=== PATIENT | male | born 1945 | race Caucasian/White ===

== ENCOUNTER 2020-07-08 11:35 | Inpatient (IN) | payer MEDICARE, BC ==
[~2020-07-08] VITALS: Ht 182.9 cm; Wt 77.5 kg
--- NOTE | ~2020-07-08 | DS ---
PATIENT:ELIZABETH PENA :41 MEDICAL RECORD: [id number] DISCHARGE SUMMARY ADMISSION DATE: 07/08/20 DISCHARGE DATE: 07/22/20 IDENTIFYING DATA: The patient is 74 years old and he was admitted to the hospital on a voluntary basis. CHIEF COMPLAINT: Aggression. HISTORY OF PRESENT ILLNESS: The patient lives at home with his . He has been aggressive with her and other family members. He was diagnosed with dementia some years ago, but the family did not want him to take medications for this condition. He is now aggressive and they cannot handle him. He has some delusions but is clearly severely impaired. HOSPITAL COURSE: The patient was admitted to the hospital and evaluated from both a medical, psychological, and social standpoint. He was treated with both mood-stabilizing and memory-enhancing medications. He showed dramatic improvement in his behaviors and subsequently was referred to a situation where he could get [id number] supervision and care. DISCHARGE DIAGNOSES: AXIS I: Major neurocognitive disorder of the Alzheimer's type with behavioral disturbances. AXIS II: None. AXIS III: Hypertension. AXIS IV: Moderate stressors. AXIS V: Global assessment of functioning is 35. PLAN: At the time of discharge, the patient had no evidence of direct or acute dangerousness to himself or others. He was tolerating his medicines well. Followup is to be with his primary care physician. NTS:[id number] Voice Confirmation ID: [id number] DOCUMENT ID: [id number] LONA DANG MD CC: [id number] DICTATION DATE: 07/23/20 1646 ELECTRIC WHEELCHAIR REPAIRER: 07/24/20 0052 DIS IN 07/22/20 [address] [address] [id number] [place] [address]
[2020-07-08 12:38] LABS: ANION GAP 5.3 mmol/L (8-16); CARBON DIOXIDE 32.1 mmol/L (21.0-32.0); CREATININE - SERUM 1.3 mg/dL (0.6-1.3); POTASSIUM - SERUM 4.4 mmol/L (3.5-5.1)
[2020-07-08 12:39] LABS: BASOPHILS 0.3 % (0-2); EOSINOPHILS 5.5 % (0-7); HEMATOCRIT 44.3 % (42.0-54.0); HEMOGLOBIN 14.8 g/dL (13.5-17.5); IMMATURE GRANULOCYTES 0.2 % (0-5); LYMPHOCYTES 24.8 % (15-50); MCH 31.4 pg (26.0-34.0); MCHC 33.4 g/dL (31.0-37.0); MCV 93.9 fL (80.0-100.0); MONOCYTES 5.9 % (2-11); NEUTROPHILS 63.3 % (40-80); PLATELET COUNT 165 10x3/uL (130-400); RBC 4.72 10x6/uL (4.20-6.10); WBC 5.8 10x3/uL (4.8-10.8)
[2020-07-08 12:53] LABS: ALBUMIN 3.7 g/dL (3.4-5.0); BILIRUBIN - TOTAL 0.48 mg/dL (0.2-1.3); MAGNESIUM - SERUM 2.3 mg/dL (1.8-2.4); PROTEIN - SERUM 6.6 g/dL (6.4-8.2); THYROID STIMULATING HORMONE 1.17 uIU/mL (0.36-3.74)
[2020-07-08 13:44] LABS: BILIRUBIN NEGATIVE (NEGATIVE); KETONE NEGATIVE (NEGATIVE); NITRITE NEGATIVE (NEGATIVE); UROBILINOGEN NORMAL mg/dL (< 2)
[2020-07-08 14:49] LABS: CHOL - HDL RATIO 3.3 ratio (2.3-4.9); LDL-HDL RATIO 1.8 ratio (1.5-3.5); THYROID STIMULATING HORMONE 1.21 uIU/mL (0.36-3.74)
[2020-07-08] MEDS ORDERED: LISINOPRIL-HCT1 EAC7 PO (15:53)
[2020-07-08] MEDS ORDERED: TRAZODONE HCL100 MG PO (15:55)
[2020-07-08 16:06] VITALS: BP 139/98; BMI 24.5
[2020-07-08 16:09] LABS: UDS - AMPHET NEGATIVE QUAL (NEGATIVE); UDS - BARB NEGATIVE QUAL (NEGATIVE); UDS - BENZO NEGATIVE QUAL (NEGATIVE); UDS - COCAINE NEGATIVE QUAL (NEGATIVE); UDS - OPIATE NEGATIVE QUAL (NEGATIVE); UDS - PCP NEGATIVE QUAL (NEGATIVE); UDS - THC NEGATIVE QUAL (NEGATIVE)
--- NOTE | 2020-07-08 16:34 | NUR ---
NEW ADMIT TO DR DANG ON [facility] FROM [facility]. PT ADMITTED FOR INCREASED AGGRESSION. PT IS FULL CODE. JEFFRY MENDOZA CONTACT # . PCP- GATO KOVACS [facility]. PHARMACY [facility] [address]. CODE # 3998.
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
--- NOTE | 2020-07-08 20:10 | NUR ---
B.) PT IS ALERT AND ORIENTED TO SELF ONLY. HE HAS POOR INSIGHT INTO HIS SITUATION. HE IS VERY [place]. HE IS OBSERVED PACING AND GRABBING AT ITEMS AT THE NURSES STATION. I.) REDIRECTED OFTEN. R.) DIFFICULT TO REDIRECT. P.) WILL CONTINUE TO MONITOR.
--- NOTE | 2020-07-08 21:30 | NUR ---
PT IS RESTING CALMLY IN BED WITH EYES CLOSED. NO DISTRESS NOTED. WILL CONTINUE TO MONITOR.
[2020-07-08 22:42] VITALS: BP 135/85
--- NOTE | 2020-07-09 07:05 | NUR ---
The patient is confused, he has poor insight into his situation. He is not able to follow simple direction, he is PUI and he keeps trying to come out of his room. He is grabbing stuff and he getting more and more anxious and frustrated. Ativan 0.5 mg and Haldol 2 mg IM in left hip. Monitor behavior and mood.
[2020-07-09 07:18] LABS: RAPID PLASMA REAGIN Non Reactive (Non Reactive)
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
--- NOTE | 2020-07-09 12:39 | NUR ---
The patient's daughter Liliane called and wanted to know how her Dad is doing and how the COVID test turned out. Let her know we do not have the results back yet. She said "Well, can you find out when the results will be back?" Explained to her that the lab will provide a final result when it is back. She asked me to find out and I said I will call the lab. Lab called me back and said the test was sent out yesterday and the results will be back in 48 hours so probably sometime tomorrow. Let the patient's daughter know and she said "Oh my he is just going to be going crazy in that room." I explained that right now he is just going through things and touching things. She did not like that he is in the room all alone being more confused and anxious. After a long pause she said "Thank you for calling me back."
[2020-07-09 13:54] VITALS: Ht 182.9 cm; Wt 77.5 kg
--- NOTE | 2020-07-09 17:42 | NUR ---
NURSE ASSISTED FEED PT. HE DID EAT BETTER. PT WAS TALKING TO UNSEEN PEOPLE IN THE ROOM. PT WAS NOT ABLE TO FULLY FOCUS ON MEALS DUE TO TALKING TO THE UNSEEN PERSON.
--- NOTE | 2020-07-09 20:35 | NUR ---
B.) PT IS ALERT AND ORIENTED TO SELF ONLY. HE HAS POOR INSIGHT INTO HIS SITUATION. HE IS VERY CONFUSED AND FINDS IT DIFFICULT TO FOLLOW SIMPLE COMMANDS. HE IS ABLE TO AMBULATE AND TENDS TO BE FOUND WANDERING INTO OTHER PATIENTS ROOMS. HE IS STILL TO REMAIN IN HIS ROOM UNDER DROPLET PRECAUTIONS PENDING COVID RESULTS. I.) PROVIDED PM MEDICATIONS PRESCRIBED. REDIRECT OFTEN. R.) COMPLIANT WITH ALL MEDICATIONS. DIFFICULT TO REDIRECT. P.) WILL CONTINUE TO MONITOR.
[2020-07-09 21:07] VITALS: BP 129/68
--- NOTE | 2020-07-10 03:24 | NUR ---
PT IS RESTLESS AND IS OBSERVED ATTEMPTING TO ENTER OTHER PATIENTS ROOM. WHEN REDIRECT HE STATES "IS THIS WHERE THE MEDICAL RECORDS COORDINATOR ALL PUT THEIR THINGS." HE IS VERY CONFUSED AND DIFFICULT TO REDIRECT. WILL CONTINUE TO MONITOR.
--- NOTE | 2020-07-10 07:39 | NUR ---
The patient continues to be in his room, awaiting COVID test results at this time it is pending. He is confused, he knows his name, but he does not know where he is or the date. He has poor insight into his situation. He does not direct well as he does not comprehend what anyone is saying to him. He looks at staff and says ok, but then he does the opposite. He is having hallucinations as he is talking to unseen others and he is pointing at things. Provide prescribed meds, monitor for medication compliance. Continue POC.
[2020-07-10 08:00] VITALS: BP 139/88
--- NOTE | 2020-07-10 08:30 | NUR ---
PT GRANDDAUGHTER CALLED TO CHECK ON PT. PASSCODE GIVEN. SHE WANTED TO KNOW HOW BAD HIS NIGHT WAS AND IF HE GOT ANY MEDICATIONS. NURSE STATED HE HAD A GOOD NIGHT. YES HE WAS RESTLESS, WANDERING, BUT NOT AGGRESSIVE AND ABLE TO REDIRECT. WE DID NOT ADMINISTER ANY PRN MEDICATIONS." SHE WAS PLEASED TO HEAR THAT HE DID NOT REQUIRE ANY PRN MEDICATIONS. SHE INQURIED IF HE HAD BEEN STARTED ON ANY MEMORY MEDICATIONS. NURSE DID REPORT HE WAS STARTED ON MEMORY MEDS. SHE VERBALIZIED UNDERSTANDING AND THANKED NURSE. SHE REQUESTED WE NOTIFY HER OR HER MOTHER WHEN PT WAS REMOVED FROM COVID PRECAUTIONS. NURSE AGREED TO NOTIFY FAMILY.
--- NOTE | 2020-07-10 16:13 | NUR ---
Nano, the patient's grand daughter called to check on him and let her know he is in the population, the COVID test is negative. Let her know her grandfather is very confused and he thinks all of the women are his and he tries to sit by them. She asked about medication to help him sleep, let her know he has trazodone ordered now, she was pleased to hear it.
--- NOTE | 2020-07-10 20:08 | NUR ---
PATIENT GIVEN A PRN HALDOL/ATIVAN FOR EXTREME AGITATION AND PSYCHOSIS, HE WAS WANTING TO STAY IN THE DINING ROOM TO SIT WITH "THE MONEY" AND THAT HE WASN'T GOING TO STEAL ANY OF THE MONEY. COMPLIANT WITH MEDS. HE IS EXTREMELY CONFUSED, HE HAS SOILED HIMSELF AND IS REFUSING INCONTINENT CARE AT THIS TIME AND BECOMES AGGRESSIVE ABOUT IT. WILL MONITOR EFFECTIVENESS
[2020-07-11 09:56] VITALS: BP 118/67
--- NOTE | 2020-07-11 12:10 | NUR ---
PT SITTING AT TABLE. RESTLESS. PT IS CONFUSED. ORIENTED TO SELF ONLY. REDIRECT AND REORIENT NEEDED. PT CAN NOT UNDERSTAND SIMPLE COMMANDS DUE TO LOW COGNITIVE UNDERSTANDING. CONSTANT REDIRECTION ENCOURAGED. PT CAN AMBULATE WITH SOME UNSTEADY. PT IS COMPLIANT WITH MEDS, VITALS AND ASSESSMENTS. PT CAN NOT MAKE COMPLETE SENTENCES. CHAIR ALARM IN PLACE AND ACTIVE. WILL CONT PLAN OF CARE.
--- NOTE | 2020-07-11 12:36 | PSY ---
PATIENT NAME:ELIZABETH PENA MEDICAL RECORD: [id number] : 41 LOCATION:[facility] ADMISSION DATE: 07/08/20 ACCOUNT: [id number] PSYCHIATRIC EVALUATION DATE OF EVALUATION: 07/09/20 IDENTIFYING DATA: The patient is 74 years old. He is admitted to the hospital on a voluntary basis. CHIEF COMPLAINT: Aggression. HISTORY OF PRESENT ILLNESS: The patient lives at home with his . He has been aggressive with her and other family members. He apparently was diagnosed with dementia some years ago, but for whatever reason, the family did not want him to take medications for this. He has now become so aggressive that they simply cannot handle him. He has had some delusions. He is impaired cognitively. He is not able to give much in the way of useful information. PAST MEDICAL HISTORY: Significant for vertigo and hypertension. PAST PSYCHIATRIC HISTORY: Significant for the diagnosis of dementia some years ago, but again I do not know who, when, where or how that diagnosis was made. That is the information that I will have to obtain. I do not know that medication was recommended, but the family at that time, at least did not want him to have medicines. FAMILY HISTORY: Unknown. ALLERGIES: LEVAQUIN. CURRENT MEDICATIONS: Include lisinopril and trazodone. SOCIAL HISTORY: The patient has no history of drug or alcohol abuse. He has no known history of sexual trauma or abuse. 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 Although, he is , he lives with his ex-. He was born and raised in [place]. He now lives in [place] and he enjoys hunting, fishing and golf, at least he did so prior to developing this disease. MENTAL STATUS EXAMINATION: The patient is awake, alert and oriented to person only. His mood is flat. His affect is constricted. Thought processes are circumstantial. Memory, concentration, and abstraction abilities are impaired and he denies that he would seek to harm himself or others as well as psychotic symptoms. ASSETS: Supportive family members. LIABILITIES: Limited insight. DIAGNOSTIC IMPRESSION: AXIS I: Major neurocognitive disorder of the Alzheimer's type with behavioral disturbances. AXIS II: None. AXIS III: Hypertension. AXIS IV: Moderate. AXIS V: Global assessment of functioning is 30. PLAN: At this time, the patient is admitted to the hospital for a comprehensive medical, psychological, and social evaluation. He will be treated with both mood stabilizing and memory enhancing medications as deemed appropriate. His long-term prognosis is guarded. TRANSINT:[id number] Voice Confirmation ID: [id number] DOCUMENT ID: [id number] LONA DANG MD at 1236 CC: [id number] DICTATION DATE: 07/09/20 1151 FIRE APPARATUS SPRINKLER INSPECTOR: 07/09/20 1204 ADM IN [place] [id number] [place] [id number]
--- NOTE | 2020-07-11 13:57 | NUR ---
RECEIVED CALL FROM DAUGHTER REQUESTING INFORMATION CONCERNING BEHAVIOR.INFORMED HER HE REFUSED MEDS TODAY BUT THAT HE HAS NOT BEEN AGGRESSIVE TODAY,HAS FED HIMSELF AND WILL EVENTUALLY START TAKING HIS MEDS.SPOUSE TO VISIT TODAY.
--- NOTE | 2020-07-11 14:11 | NUR ---
PT DAUGHTER CALLED ASKING TO SPEAK TO A DIGITAL ASSET SPECIALIST OR FINISHING AND SHIPPING SUPERVISOR. NURSE EXPLAINED THE SOCIAL WORKERS HOURS WERE MONDAY THRU MONDAY. ON THE WEEKEND THE NURSING STAFF AND T TECHS WERE HERE. NURSE ASKED IF I COULD ANSWER HER QUESTIONS. SHE STATED NO. WELL MAYBE I JUST SPOKE TO I GUESS WHAT WAS A NURSE ABOUT MY FATHER." NURSE ASKED FOR NAME OF PT AND PASSCODE. NAME AND PASSCODE GIVEN. SHE ASKED "IF HE REFUSES HIS MEDICATIONS. IM HIS POA. I DONT THINK HE CAN REFUSE HIS MEDICATIONS HE IS NOT IN THAT STATE OF MIND TO REFUSED MEDICATIONS. IF HE KEEPS REFUSING THE MEDICATIONS HOW ARE WE GONNA KNOW ITS WORKING? HE WILL BE THERE LONGER. THE ONLY THING YALL ARE DOING IS OVERSEDATING HIM WITH THE MEDICATIONS YOU ARE GIVING HIM. CAN YOU NOT CRUSH HIS MEDICATIONS AND GIVE THEM TO HIM IN APPLE SAUSE OR PUDDING?" NURSE STATED Roseanna JACKSON RN DID CRUSH MEDICATIONS AND ATTEMPTED SEVERAL TIMES TO ADMINISTER MEDICATIONS IN THE PROPER WINDOW OF TIME. PT CONT TO REFUSED CRUSHED MEDS. WE CAN NOT FORCE A PT TO TAKE HIS MEDICATIONS. NURSE EDUCATED ON PROPER MEDICATIONS ADMINISTRATION, PRN VS SEDATION, PT IS AWAKE AND HE IS EATING VERY WELL. A USUAL STAFF IS 7 TO 14 DAYS TO WATCH IF MEDICATIONS ARE CORRECT OR IF MORE MED CHANGES ARE NEEDED. IT TAKE TIME FOR MEDICATION TO BEGIN TO WORK IN PTS SYSTEM. DAUGHTER STATED "WELL IS THERE ANYWAY WE CAN COME AND GET HIM? TAKE HIM TO ANOTHER DOCTOR AND GET THSESE MEDICATIONS PRESCRIBED?" NURSE STATED THERE ARE OPTIONS. NURSE WOULD CALL THE DOCTOR TO GET THE ORDER FOR A AMA(AGAINST MEDICAL ADVICE) OR HE WROTE THE ORDER FOR THE PT TO DISCHARGE. ONCE A DECISION WAS MADE THE NURSE WOULD GIVE HER A CALLBACK." DAUGHTER STATED HER MOTHER WAS COMING TO VISIT TODAY AND SHE WOULD ASSESS THE SITUATION. SHE WOULD WAIT TO SEE WHAT SHE SAYS." NURSE VERBALIZIED UNDERSTANDING.
--- NOTE | 2020-07-11 16:03 | NUR ---
PT CAREGIVER XOCHITL CAME TO VISIT THIS SHIFT. SHE STATED "WHERE ARE HIS SHOES? HE HAS BRAND-NEW SHOES. WHY ARENT HE WEARING THEM? HAS HE HAD A NAP FOR THE DAY? I HAVE HIM ON A SCHEDULE. HE HAS BREAKFAST AT 8 AND MEDS AT 9. LUNCH AT 12 P.M. AND THEN A NAP. ARE YALL TAKING CARE OF HIM LIKE THAT? I'VE BEEN HERE AND HE HAS YAWNED 4 TIMES. IN THE 2 YEARS TRUNG TAKEN CARE OF HIM HE HAS NEVER BEEN LIKE THIS. HE IS SLEEPY. IS HE EATING AT ALL? HE LOOKS HUNGRY." NURSE ATTEMPTED TO EDUCATE THAT OUR SCHEDULE DOES NOT ALLOW FOR AFTERNOON NAPS. WE ADHERE TO A STRICT SCHEDULE AND WE HAVE TO HAVE ACTIVITES IN THE GROUP ROOM. HE ATE 100% OF LUNCH. HE REFUSED TO TAKE HIS MEDS SO THERE IS NOT ANY MEDICATION IN HIS SYSTEM." SHE DID NOT VERBALIZE ANY UNDERSTANDING. SHE STATED WE WERE NOT TAKING CARE OF HIM PROPERLY. IM GOING TO HAVE TO TEACH THEM." STAFF ATTEMPTED TO EXPLAIN OUR RULES AND REGULATIONS. SHE DID NOT VERBALIZE UNDERSTANDING.
--- NOTE | 2020-07-11 20:34 | NUR ---
RECEIVED PATIENT IN DAYROOM, HE IS VERY CONFUSED AND HIS THOUGHTS ARE DISORGANIZED, HE IS COMPLIANT WITH MEDS BUT THEY HAVE TO BE PUT INTO HIS MOUTH, HE DOES NOT UNDERSTAND WHAT OR WHY HE IS TAKING. HE IS VERY FIGIDITY. HE IS HARD TO UNDERSTAND. HE BECOMES AGITATED VERY QUICKLY. WILL FOLLOW POC
[2020-07-11 21:41] VITALS: BP 117/58
[2020-07-12 08:47] VITALS: BP 92/59
--- NOTE | 2020-07-12 10:52 | NUR ---
PATIENT'S DAUGHTER AND POA, CHELSEA, CALLED FOR UPDATE ON PATIENT. COMMUNICATED TO FAMILY MEMBER THAT PATIENT IS COOPERATIVE WITH MEDICATIONS THIS MORNING AND DIDNT REQUIRE ANY PRN MEDICATIONS LAST NIGHT. EDUCATED ON MEDICATIONS THAT PATIENT IS CURRENTLY PRESCRIBED. DAUGHTER STATED THAT HE CANNOT REFUSE HIS MEDICATIONS AND ALSO REQUESTS THAT HE BE GIVEN PRN MEDICATIONS MORE OFTEN SO THAT HE DOES NOT REFUSE HIS SCHEDULED MEDICATIONS. THIS NURSE EDUCATED DAUGHTER THAT HE IS CURRENTLY COOPERATIVE WITH HIS MEDICATION REGIMEN AND PRN MEDICATIONS ARE ONLY GIVEN FOR BEHAVIORAL DISTURBANCES.
--- NOTE | 2020-07-12 14:51 | NUR ---
RECEIVED IN HALLWAY OUTSIDE OF NURSES STATION. CALM AND COOPERATIVE WITH CARE AND ASSESSMENT. VERY CONFUSED. AKH[place]. WANDERING. INTRUSIVE. ANXIOUS. EXIT SEEKING. REDIRECT AND REORIENT NEEDED. SITTING IN GROUP AT THIS TIME. CONTINUE PLAN OF CARE.
--- NOTE | 2020-07-12 17:00 | NUR ---
DAUGHTER AND POA, CHELSEA, CAME TO VISITATION. VISIT WITH PATIENT WENT WELL. NURSING STAFF ANSWERED ALL HER QUESTIONS AND REVIEWED ALL HIS CURRENT MEDICATIONS AGAIN. DAUGHTER BROUGHT MORE CLOTHES FOR PATIENT AND DONATED MARKERS, COLORING BOOKS, AND COPY PAPER TO DETENTION UNIT FOR PATIENT USE.
[2020-07-12 20:16] VITALS: BP 113/53
--- NOTE | 2020-07-12 20:28 | NUR ---
RECEIVED IN DAYROOM. SITTING IN A CHAIR WITH PEERS AT HER SIDE. CALM AND COOPERATIVE WITH CARE AND ASSESSMENT. NO SIGNS OF AGGRESSION. REDIRECT AND REORIENT NEEDED. CONTINUES TO SIT CALMLY IN DAYROOM. CONTINUE PLAN OF CARE.
[2020-07-13 08:45] VITALS: BP 100/50
--- NOTE | 2020-07-13 08:46 | NUR ---
REC'D PT IN HALLWAY BY THE NURSES STATION. CALM AND COOPERATIVE WITH ASSESSMENT. PT IS VERY CONFUSED AT THIS TIME. PT IS MENTASTA, WANDERING, INTRUSIVE, AND ANXIOUS. EXIT SEEKING AT TIMES. PRESCRIBED MEDS PROVIDED ORDERED. MED COMPLIANT. REDIRECT AND REORIENT NEEDED. WILL CPOC.
--- NOTE | 2020-07-13 10:02 | NUR ---
Nutrition Follow-up: Chart reviewed. Noted that patient has been refusing some of his meals. MD plans to start him on Megace. Diet: Regular PO intake: ~48% average x last 9 meals (varied 0-100%) Last BM: none recorded since admit. Wt: 170.6# (07/12/20); Admit Wt: 180.4# vs 160# (07/08/20)- noted multiple wts, will continue to monitor wt trend. Meds noted: megace ES (started 07/13/20), senokot, HCTZ. No new chem labs Recommend continue current diet. Will add Ensure with meals. Recommend continue appetite stimulant. RD following.
[2020-07-13 20:03] VITALS: BP 124/73
--- NOTE | 2020-07-13 20:34 | NUR ---
RECEIVED IN DAYROOM. SITTING IN A CHAIR WITH PEERS AT HIS SIDE. CALM AND COOPERATIVE WITH CARE AND ASSESSMENT. NO SIGNS OF AGGRESSION. REDIRECT AND REOREINT NEEDED. CONTINUES TO SIT CALMLY IN DAYROOM. CONTINUE PLAN OF CARE.
[2020-07-13 21:05] VITALS: BP 114/52
--- NOTE | 2020-07-13 22:05 | NUR ---
VERY CONFUSED. PACING HALLWAY IN BEDROOM AREA. VERY CONFUSED.
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
[2020-07-14 08:47] VITALS: BP 107/62
--- NOTE | 2020-07-14 12:00 | NUR ---
RECEIVED IN PATIENT ROOM. RESTING IN BED WITH EYES OPEN. CALM AND COOPERATIVE WITH CARE AND ASSESSMENT. WANDERS CONSTANTLY. NO AGGRESSION. REDIRECT AND REORIENT NEEDED. EATING AT THIS TIME. CONTINUE PLAN OF CARE.
--- NOTE | 2020-07-14 14:32 | NUR ---
SW SPOKE TO PT'S DTR AND POA. SW EDUCATED ON DISEASE PROGRESSION, DIFFERENT LEVELS OF CARE, RESOURCES FOR CAREGIVERS, COMMUNICATION STYLES WITH DEMENTIA PT, CARE GIVING GRANTS FROM [facility] ON AGING, HOME SAFETY, CARE GIVING STRESS SIGNS AND SYMPTOMS, AND THE IMPORTANCE OF SELF CARE. SW GAVE UPDATE ON PT. PT'S DTR VERBALIZED UNDERSTANDING OF DISCUSSION.
--- NOTE | 2020-07-14 14:39 | PN ---
PATIENT:ELIZABETH PENA MEDICAL RECORD: [id number] LOCATION:[facility] ADMISSION DATE: 07/08/20 PROGRESS NOTE DATE OF SERVICE: 07/13/2020 SUBJECTIVE: The patient's case was discussed with staff. He has no new complaint. OBJECTIVE: The patient is in good behavioral control. He has poor insight about his situation. He has not been excessively disruptive, but he is anxious and exit seeking. ASSESSMENT: Dementia. PLAN: The patient will have his Namenda increased to 5 mg twice daily. Namenda is being used to treat his underlying cognitive impairment. He will be monitored for clinical changes associated with its use. TRANSINT:[id number] Voice Confirmation ID: [id number] DOCUMENT ID: [id number] LONA DANG MD at 1439 CC: [id number] DICTATION DATE: 07/13/20 1702 GAS REVERSER: 07/14/20 0235 ADM IN [place] [id number] [place] [address]
[2020-07-14 20:10] VITALS: BP 87/51
--- NOTE | 2020-07-14 20:26 | NUR ---
RECEIVED IN DINING AREA. SITTING IN A CHAIR AT A TABLE. CALM AND COOPERATIVE WITH CARE AND ASSESSMENT. NO SIGNS OF AGGRESSION. REDIRECT AND REORIENT NEEDED. CONTINUES TO SIT CALMLY IN DINING ROOM. CONTINUE PLAN OF CARE.
[2020-07-15 08:38] VITALS: BP 110/60
--- NOTE | 2020-07-15 08:38 | PN ---
PATIENT:ELIZABETH PENA MEDICAL RECORD: [id number] LOCATION:[facility] ADMISSION DATE: 07/08/20 PROGRESS NOTE DATE OF SERVICE: 07/14/2020 SUBJECTIVE: The patient's case was discussed with staff. He has no new complaint. OBJECTIVE: The patient is partially oriented. His behavior has been good. He is tolerating his current medications well. ASSESSMENT: Dementia. PLAN: Current medicines have been reviewed and will be maintained. Long-term prognosis is guarded. TRANSINT:[id number] Voice Confirmation ID: [id number] DOCUMENT ID: [id number] LONA DANG MD at 0838 CC: [id number] DICTATION DATE: 07/14/20 1615 CUSHION PADDER: 07/15/20 0040 ADM IN [place] [id number] [place] [id number]
--- NOTE | 2020-07-15 09:59 | NUR ---
SW SPOKE WITH PT'S DTR AND GAVE UPDATE ON PT'S BEHAVIORS AFTER VISITATION AND REPORTED INTERACTION DURING VISITATION. SW STATED SHE WILL MEET WITH PT'S EX /INNER TUBE CUTTER MONDAY TO EDUCATE MORE ON WAYS TO COMMUNICATE AND INTERACT WITH DEMENTIA PATIENTS. PT'S DTR, CHELSEA, VERBALIZED UNDERSTANDING OF DISCUSSION.
--- NOTE | 2020-07-15 13:44 | NUR ---
ALERT, CALM, CONFUSED, BECOMES MORE CONFUSED THE DAY PROGRESSES. COMPLIANT WITH MEDICATIONS, NO AGGRESSION OR ADVERSE BEHAVIORS NOTED. CONVERSES WITH OTHER PATIENTS AT TIMES. PATICIPATES IN PLAN OF CARE. CONTINUE PLAN OF CARE DIRECTED.
--- NOTE | 2020-07-15 15:14 | NUR ---
Nutrition Follow-up: Noted pt has refused some meals. Started on Megace ES 07/13/20. Diet: Regular + Ensure TID PO intake: ~34% average x last 9 meals Last BM: none recorded since admit x 7 days now Wt: 170.6# (07/12/20); Admit Wt: 180.4# (07/08/20) Meds noted: senokot, megace ES, HCTZ Noted weight difference of -9.8#. Patient is with inadequate energy intake however, it is unlikely that he lost almost 10# of true body weight in 1 week. Some weight loss may be 2/2 fluid status vs. differences of scales. Recommend continue bowel regimen to promote BM regularity and help appetite. Recommend continue current diet and oral nutrition supplements. Recommend continue appetite stimulant as medically feasible. Encourage PO intake at meal times. Will continue to monitor PO intake and wt trend. RD following.
[2020-07-15 20:08] VITALS: BP 105/72
--- NOTE | 2020-07-15 21:17 | NUR ---
PT SITTING UP IN RECLINER IN DAY ROOM, ADM 2100 MEDS PO PER MD ORDERS, SEE EMAR, WITH A LITTLE RESISTANCE, PLACED PILLS IN PUDDING, PT THEN TOOK MEDS
--- NOTE | 2020-07-16 08:30 | PN ---
PATIENT:ELIZABETH PENA MEDICAL RECORD: [id number] LOCATION:[facility] ADMISSION DATE: 07/08/20 PROGRESS NOTE DATE OF SERVICE: 07/15/2020 SUBJECTIVE: The patient's case was discussed with staff. He has no new complaint. OBJECTIVE: The patient is in good behavioral control with poor insight about his situation. He tolerates his medicines well. ASSESSMENT: Dementia. PLAN: Current medicines have been reviewed and will be maintained. His behavior has improved today, although he still is not eating adequately. TRANSINT:[id number] Voice Confirmation ID: [id number] DOCUMENT ID: [id number] LONA DANG MD at 0830 CC: [id number] DICTATION DATE: 07/15/20 1611 SAWMILL HAND: 07/15/20 2256 ADM IN [place] [id number] [place] [address]
--- NOTE | 2020-07-16 08:47 | NUR ---
NURSE SPOKE WITH GRANDDAUGHTER. PASSCODE GIVEN. SHE STATED THE FAMILY HAD A PHONE CALL SCHEDULED WITH THE SHOP TAILOR TODAY. SHE WANTED TO EXPRESS CONCERN ABOUT WHAT THE NEXT STEP WAS FROM HERE. SHE SPOKE WITH SOMEONE YESTERDAY AND THEY STATED THEY WERE ONLY WORKING ON ADLS WITH PT. NURSE STATED HE HAD NOT HAD ANY AGGRESSIVE BEHAVIOR. WHICH WAS AN IMPROVEMENT SINCE ADMISSION. SHE INQUIRED WHAT WOULD BE THE STEP FOR DISCHARGE. NURSE IF HE WAS GOING INTO THE HOME ENVIROEMENT THEN HE WOULD NEED 24 HOUR SUPERVISION AND THE JEFF WOULD HAVE TO BE DEMENTIA PROOF. GRANDDAUGHTER WANTED TO HAVE FALL PRECAUTIONS AND DEMENTIA HOME SAFETY DISCUSSED IN SHOP TAILOR SESSION THIS SHIFT. WILL RELAY MESSAGE TO SHOP TAILOR.
--- NOTE | 2020-07-16 10:50 | NUR ---
PT WAS AGITATED THINKING A STAFF MEMBER WAS HARMING ANOTHER PT. PT IS VERY CONFUSED AND DIFFICULT TO REDIRECT AT TIMES. NURSE ADMINISTERED ATIVAN 0.5 MG PO. WILL CONT PLAN OF CARE.
--- NOTE | 2020-07-16 11:50 | NUR ---
ATIVAN 0.5 MG PO IS NOT EFFECTIVE AT THIS TIME. STAFF IS UNABLE TO REDIRECT PT AT THIS TIME.
--- NOTE | 2020-07-16 13:15 | NUR ---
BATOOL NOT REDIRECT.VERY CONFUSED AND VISUAL HALLUCINATIONS OBSERVED.HE STATED TO THIS NURSE " SEE THAT BETWEEN THE TABLES,JUST WAIT UNTILL I START KICKING IT." THIS NURSE SAW NOTHING BETWEEN THE TABLES.HE HAS BEEN AGGRESSIVE TOWARD THIS NURSE SEVERAL TIMES TODAY.OBSERVED THIS NURSE GIVING MEDS TO A FEMALE PATIENT AND INTERPRETED IT TO BE AN ATTEMPT AT HARMING THE PATIENT. CORNERED THIS NURSE AND TOLD ME TO GET MY STUFF AND GET OUT.ED CARO WAS CALLED. AT ONE POINT HE GRABBED HOLD OF THIS NURSE'S COMPUTER AND WAS PULLING ON IT AGAINST THE RESISTANCE OF THIS NURSE.WILL NOT REDIRECT.HAS REFUSED PO MEDS.
--- NOTE | 2020-07-16 13:17 | NUR ---
CASTRO SPOKE WITH PT'S DTR, CHELSEA, TO ADVISE IT IS NOT RECOMMENDED FOR PT TO HAVE VISITS TODAY DUE TO PT'S BEHAVIOR. CASTRO EDUCATED ON DISEASE PROGRESSION AND MEDICATION MANAGEMENT. SW ALSO RESCHEDULED THE FAMILY CONFERENCE TO NEXT MONDAY WHEN PT'S COUTURIERE AND EX COULD BE PRESENT. CHELSEA VOICED UNDERSTANDING.
--- NOTE | 2020-07-16 14:14 | NUR ---
STAFF ATTEMPTED PERICARE FOR INCONTIENT EPISODES. PT REFUSED 4X TO ALLOW STAFF TO ASSIST PT INTO RESTROOM. WILL ATTEMPT AT ANOTHER TIME.
--- NOTE | 2020-07-16 14:15 | NUR ---
PT CONTS TO BE MILDY AGGRESSIVE WITH STAFF CARE TO OTHER PTS WELL PTS PERICARE.
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
[2020-07-16 20:27] VITALS: BP 98/55
--- NOTE | 2020-07-17 03:45 | NUR ---
B) Patient is alert and oriented to self, very confused, wanders, difficult to redirect, I) Administered scheduled medications as ordered, monitored for safety R) Medication compliant, resting quietly now, P) Continue plan of care.
--- NOTE | 2020-07-17 09:02 | PN ---
PATIENT:ELIZABETH PENA MEDICAL RECORD: [id number] LOCATION:[facility] ADMISSION DATE: 07/08/20 PROGRESS NOTE DATE OF SERVICE: 07/16/2020 SUBJECTIVE: The patient's case was discussed with staff. He has no new complaint. OBJECTIVE: The patient has been disruptive and agitated. He has limited insight about his situation. ASSESSMENT: Dementia. PLAN: The patient's medications have been reviewed. I am going to increase the dose of his antipsychotic medication to assist with his underlying behavior disturbances. TRANSINT:[id number] Voice Confirmation ID: [id number] DOCUMENT ID: [id number] LONA DANG MD at 0902 CC: [id number] DICTATION DATE: 07/16/20 162 MANAGER CARE: 07/16/202108 ADM IN [id number] [place] [address]
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
[2020-07-17 10:06] VITALS: BP 88/40
--- NOTE | 2020-07-17 11:50 | NUR ---
The patient is confused, unsure if he even knows his name as he does not respond. He is [place], so it is difficult to differentiate. He is not able to comprehend simple, direct sentences or commands, he does not want or like to be directed even if it is for his or another patient's safety. He had a cup that had medication in it and he was trying to place it in another patients chair. Attempted to move the cup, but the patient grabbed the cup. He put the cup on the book shelf and staff were able to get it as it is empty and throw it away. He uses word salad and it is difficult to communicate with him. He ambulates, toilets, and feeds himself. Miguel Cohn RN was able to get a couple am meds in him. Monitor his mood and behavior. Continue POC.
[2020-07-17 20:19] VITALS: BP 121/62
--- NOTE | 2020-07-17 22:09 | NUR ---
PT IS RESTLESS AND AGGRESSIVE WITH REDIRECTION. UNABLE TO REDIRECT. ADMINISTERED PRN ATIVAN 0.5 MG AND HALDOL 2 MG IM. WILL CONTINUE TO MONITOR.
--- NOTE | 2020-07-17 23:45 | NUR ---
PT RESTING CALMLY IN BED WITH EYES CLOSED. NO SIGNS OF DISTRESS NOTED. WILIAM ALARM ON AND WORKING. WILL CONTINUE TO MONITOR.
--- NOTE | 2020-07-18 04:15 | NUR ---
B) Patient is alert and very confused, aggressive at times if redirected, wanders into other patient rooms at times, talks in wordsalad. I) Administered scheduled medications as ordered, redirected as needed, PRN Ativan and Haldol IM for anxiety, R) Medication compliant, difficult and hard to predict his actions, P) Continue plan of care.
[2020-07-18 10:07] VITALS: BP 122/61
--- NOTE | 2020-07-18 12:46 | NUR ---
The patient is confused, unsure if he knows his name. He chose to stay in his room until about 9 am then he sat in the sweeney and had his breakfast, he would not go to the day room even though, all of the other patient's walked down there. He said "No" then some other word salad. He tried to walk into another patient's room, the patient was in there on the toilet and I told him "No, you can't go in there." He put his finger in my face and said "Now, don't you tell me what to do." He then tried to force his way into the room. I got in the room and shut the door. Divyasully De Oliveira APN, was able to get his attention and he calmly, nonchalantly walked to the day room with her without any aggression. Provide prescribed meds. The patient is not compliant, he just looks at it and says "No" The patient tries to bark orders at staff. Continue POC.
--- NOTE | 2020-07-18 16:04 | NUR ---
The patient's exwife is here visiting and the patient got up and went back into the day room. He had no interest in visiting. I explained to her that I wish he would let me shave him and she said "No, he likes to use an electric razor." I said "Ok, I'll let Idalmis know so that she can let him shave." She said "Oh, yea there's lots of tricks." Explained to her that "Yes, ma'am we have lots of tricks." She said "Thank you, you've been the best and we appreciate you all taking care of him."
--- NOTE | 2020-07-18 20:10 | NUR ---
ATTEMPTED TO CALL KRISTI, PTS GRANDDAUGHTER WITH TONIGHTS VITALS AT [phone]. LEFT A VOICEMAIL TO RETURN CALL.
--- NOTE | 2020-07-18 20:58 | NUR ---
SPOKE WITH SATURNINO, PTS GRANDDAUGHTER REGARDING ALL MEDICATIONS THE PT IS CURRENTLY ON AND HIS LAST DOSE OF PRN HALDOL AND ATIVAN AT 2200 YESTERDAY EVENING. SHE INQUIRED ABOUT HIS LAB RESULTS AND CURRENT VITALS. SHE STATES THAT SHE IS TRYING TO ENSURE THAT HE IS NOT OVER SEDATED. SHE ALSO REQUESTED THAT IF THERE IS AN ISSUE WITH AGGRESSION THAT SHOULD KEEP HIM FROM VISITATION TO PLEASE CONTACT HER OR HER FAMILY THEY DO DRIVE 1-2 HOURS TO VISIT. INFORMED HER THAT HE HASNT HAD ANY BEHAVIORS TODAY AND HE IS COOPERATIVE WITH STAFF. ALSO INFORMED HER THAT HE WAS GETTING A SHOWER AT THIS TIME. SHE RELATED THAT HE USUALLY SHOWERS EVERY DAY. UPDATED HER ON UNIT POLICY REGARDING SHOWERS. WILL CONTINUE TO MONITOR.
[2020-07-18 21:30] VITALS: BP 126/67
--- NOTE | 2020-07-18 22:16 | NUR ---
PT GRANDDAUGHTER RETURNED MY CALL. INFORMED HER OF PTS VITALS THIS EVEN AND HIS CURRENT STATUS OF SLEEPING. SHE RELATED HER APPRECIATION FOR RETURNING THE CALL AND PROVIDING ALL THE ANSWERS TO HER QUESTIONS. INFORMED HER TO CALL IF SHE HAD ANY MORE CONCERNS.
--- NOTE | 2020-07-19 03:23 | NUR ---
B) patient is alert and oriented to self, resistant to redirection, intrusive: tries to go into other patient rooms, defiant when redirected, talks in worsalad. I) Administered scheduled medications as ordered, redirected as needed, R) Medication compliant for HS medications, resting quietly in his room tonight, P) Continue plan of care.
[2020-07-19 08:50] VITALS: BP 104/62
--- NOTE | 2020-07-19 14:58 | NUR ---
B) PATIENT REC'D CONFUSED, DISORIENTED (WILL LOOK AT SPEAKER WHEN CALLED BY NAME BUT DOES NOT ALWAYS MAKE EYE CONTACT OR RESPOND), WORDS ARE GARBLED AND NONSENSICAL. THIS AM MED ATTEMPT X'S 2 BUT OFTEN REFUSES HIS MEDS, MEAL CONSUMPTIONS ENCOURAGED PATIENT WILL NOT ALLOW ANY HELP, LIKES TO PAT THE SHOULDERS OR BACK OF FEMALE PATIENTS AND HAS OFTEN ATTEMPTED TO GUARD THE PATIENTS. I)ATTEMPT TO REORIENTE PATIENT TO CURRENT EVENTS OF NAME, PLACE, SITUATION. DISCOURAGE PATIENT IN TOUCHING THE FEMALE PATIENTS. ALLOW PATIENT AMPLE TIME TO TAKE MEDS AND EAT. PRN MEDICATIONS ONLY IF PATIENT IS SELF HARM OR HARM TO OTHERS. WHEN PATIENT IS AGITATED, APPROACH IN LOW SOFT TONE AND OFFER CHOICES TO DECREASE THE AGITATIVE BEHAVIOR. ENCOURAGE PATIENT TO PARTICIPATE IN ONE TO ONE AND GROUP ATIVITIES. P) REDIRECTED PATIENT WITH TOUCHING OF FEMALE PATIENTS AND WHEN HE HAD OUTBURSE OF ANGER. SLEPT MOST OF THE DAY.
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
[2020-07-19 20:31] VITALS: BP 89/46
--- NOTE | 2020-07-19 21:13 | NUR ---
PT IS RESTING CALMLY IN BED WITH EYES OPEN. NO SIGNS OF DISTRESS NOTED. WILL CONTINUE TO MONITOR.
[2020-07-20 08:35] VITALS: BP 97/64
--- NOTE | 2020-07-20 09:10 | NUR ---
THIS NURSE ANSWERED PHONE IN THE DAYROOM. PTS FAMILY PROVIDED CODE # AND ASKED FOR UPDATE. THIS NURSE EXPLAINED I AM CURRENTLY IN THE MIDDLE OF MEDICATION PASS AT THIS TIME. THE MORNINGS ARE A REALLY BUSY TIME FOR THE STAFF. THIS NURSE REPORTED TO GRANDDAUGHTER THAT HE HAD ATE BREAKFAST AND IS RESTING IN RECLINING CHAIR AT THIS TIME. THIS NURSE DID NOT HAVE ANYTHING ELSE TO REPORT AT THIS TIME DUE TO I DID NOT HAVE MY REPORT SHEETS AT THIS TIME. I AM CURRENTLY IN THE MIDDLE OF MED PASS, BUT IF YOU DO NOT MIND HOLDING FOR A SECOND I WILL ASK THE OTHER NURSE ISHA FELTON THAT IS PRESENT IN DAYROOM WITNESSING THIS CONSERVATION AT THIS TIME TO LOOK UP INFORMATION REQUESTED. GRANDDAUGHTER REQUESTED INFORMATION ON IF PT REC'D ANY PRN'S LAST NIGHT. DANISHA RN HAD ACCESS TO COMPUTER LOOKED UP INFORMATION AND THIS NURSE PROVIDED INFORMATION REQUESTED. THIS NURSE EXPLAINED PT REC'D HALDOL 2MG IM AND ATIVAN 0.5MG IM AT 2025 PER REPORT SHEET AND EMAR FOR AGGRESSION WITH STAFF. OMID THANKED STAFF AT THIS TIME.
--- NOTE | 2020-07-20 17:26 | NUR ---
RECEIVED IN HALLWAY OUTSIDE OF NURSES. CALM AND COOPERATIVE WITH CARE AND ASSESSMENT. VERY CONFSUED. WANDERING CONTINUOUSLY. NO AGITATION OR AGGRESSION. REDIRECT AND REORIENT NEEDED. EATING AT THIS TIME. CONTINUE PLAN OF CARE.
[2020-07-20 20:45] VITALS: BP 112/71
[2020-07-21] MEDS ORDERED: LISINOPRIL10 MG PO (17:35)
[2020-07-21] MEDS ORDERED: GEODON20 MG PO (17:36)
[2020-07-21] MEDS ORDERED: LINZESS145 MCG PO (17:36)
[2020-07-21] MEDS ORDERED: KLONOPIN0.5 MG PO (17:36)
[2020-07-21] MEDS ORDERED: NAMENDA5 MG PO (17:36)
[2020-07-21] MEDS ORDERED: TRAZODONE HCL100 MG PO (17:36)
[2020-07-21] MEDS ORDERED: Senokot TAB PO (17:37)
[2020-07-21] MEDS ORDERED: FOLIC ACID1 MG PO (17:37)
[2020-07-21] MEDS ORDERED: VITAMIN D PO (17:37)
[2020-07-21] MEDS ORDERED: Megace ES [CHEMO] PO (17:37)
[2020-07-21 19:56] VITALS: BP 115/63
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
--- NOTE | 2020-07-22 08:30 | PN ---
PATIENT:ELIZABETH PENA MEDICAL RECORD: [id number] LOCATION:[facility] ADMISSION DATE: 07/08/20 PROGRESS NOTE DATE OF SERVICE: 07/21/2020 SUBJECTIVE: The patient's case was discussed with staff. He has no new complaint. OBJECTIVE: The patient has been in good behavioral control. He has limited insight about his situation. He is participating in treatment. ASSESSMENT: Dementia. PLAN: I anticipate the patient can reasonably be transitioned out of the hospital tomorrow. His prognosis is guarded. His family is going to care for him at home. TRANSINT:[id number] Voice Confirmation ID: [id number] DOCUMENT ID: [id number] LONA DANG MD at 0830 CC: [id number] DICTATION DATE: 07/21/20 173 COST CONTROL SUPERVISOR: 07/22/20 0300 ADM IN [facility] [address] [id number]
--- NOTE | 2020-07-22 10:45 | NUR ---
PATIENT DISCHARGED TO HOME WITH DAUGHTER. DISCHARGE PAPERWORK FAXED TO PCP AND HARD COPY SENT WITH PATIENT. HOME MEDICATIONS AND DISCHARGE PAPERWORK REVIEWED WITH DAUGHTER. MEDICATIONS SENT TO [facility]. PERSONAL BELONGINGS INVENTORIED OUT AND SENT HOME WITH PATIENT.
== END 2020-07-22 10:30 | disposition home or self-care (01) | DRG 57 ==
LOC: D.ER 11:35 → D.PSYCH 13:05
PROVIDERS: Family Medicine; ADMIT Psychiatry & Neurology Psychiatry; ATTEND Psychiatry & Neurology Psychiatry
DX: G30.1 Alzheimer's disease with late onset (principal); F02.81 Dementia in other diseases classified elsewhere, unspecified severity, with behavioral disturbance; I10 Essential (primary) hypertension; E55.9 Vitamin D deficiency, unspecified; E53.8 Deficiency of other specified B group vitamins; K59.00 Constipation, unspecified; R63.0 Anorexia; Z68.24 Body mass index [BMI] 24.0-24.9, adult